=== PATIENT | female | born 1970 | race Caucasian/White ===

== ENCOUNTER 2018-01-24 04:44 | Emergency (ER) | payer OTHER ==
[~2018-01-24] VITALS: Ht 172.7 cm; Wt 65.9 kg
[2018-01-24 04:50] VITALS: TEMP 97.7
[2018-01-24] MEDS ORDERED: PREDNISONE20 MG PO (05:58)
[2018-01-24] MEDS ORDERED: VOLTAREN 75 DR75 MG PO (05:58)
[2018-01-24] MEDS ORDERED: NORCO 325 MG-51 TAB PO (05:58)
[2018-01-24] MEDS ORDERED: ZOLOFT 50MG50 MG PO (06:05)
[2018-01-24 06:09] VITALS: BP 107/62; PULSE 79
== END 2018-01-24 06:06 | disposition home or self-care (01) ==
LOC: COL.ER 04:44
DX: M25.552 Pain in left hip (principal); I10 Essential (primary) hypertension; W06.XXXA Fall from bed, initial encounter
CPT/HCPCS: J1885; J7512

== ENCOUNTER 2018-08-17 19:56 | Emergency (ER) | payer OTHER ==
[~2018-08-17] VITALS: Ht 172.7 cm; Wt 61.4 kg
[~2018-08-17 19:56] MED LIST: FERRO-TIME325 MG PO; HYDROCHLOROTHIAZIDE PO; NORCO 325 MG-51 TAB PO; PREDNISONE20 MG PO; PROTONIX 40MG T40 MG PO; VOLTAREN 75 DR75 MG PO; ZOLOFT 50MG50 MG PO; [UNRECOGNIZED DRUG - OTHER] PO
[2018-08-17 20:01] VITALS: TEMP 99
[2018-08-17] MEDS ORDERED: MICARDIS20 MG PO (20:17)
[2018-08-17] MEDS ORDERED: AUGMENTIN 400100 ML PO (21:12)
[2018-08-17] MEDS ORDERED: PHENERGAN 25 TA25 MG PO (21:15)
[2018-08-17 21:41] VITALS: BP 143/80; PULSE 88
[2018-08-21] MEDS ORDERED: AUGMENTIN 400100 ML PO (17:10)
== END 2018-08-17 21:41 | disposition home or self-care (01) ==
LOC: COL.ER 19:56
DX: J20.9 Acute bronchitis, unspecified (principal); F17.210 Nicotine dependence, cigarettes, uncomplicated

== ENCOUNTER 2019-01-30 22:41 | Emergency (ER) | payer OTHER ==
[~2019-01-30] VITALS: Ht 172.7 cm; Wt 61.4 kg
[~2019-01-30 22:41] MED LIST changes: +AUGMENTIN 400100 ML PO; +MICARDIS20 MG PO; +PHENERGAN 25 TA25 MG PO
[2019-01-30 22:47] VITALS: TEMP 98.2
[2019-01-31 00:07] LABS: BASO % 0.5 % (0.0-2.0); EOS # 0.1 (0.0-0.7); EOS % 1.5 % (0-4.0); GRAN # 5.2 (1.4-6.5); GRAN % 67.1 % (42.2-75.2); LYMPH # 1.8 (1.2-3.4); LYMPH % 22.4 % (20.0-51.0); MEAN CELL VOLUME 75 fl (80.0-100.0); MEAN CORPUSCULAR HGB CONC 29 g/dl (33.0-37.0); MEAN PLATELET VOLUME 11.4 fl (7.4-10.4); MONO # 0.6 (0.1-0.6); MONO % 8.2 % (1.7-9.3); PLATELET COUNT 200 K/mm3 (130-400); RED BLOOD COUNT 4.48 M/mm3 (4.10-5.30); REDCELL DISTRIBUTION WIDTH-CV 18.6 % (11.5-14.5)
[2019-01-31 00:08] LABS: HEMATOCRIT 33.7 % (37.0-47.0); HEMOGLOBIN 9.8 g/dl (12.5-16.0); MEAN CORPUSCULAR HEMOGLOBIN 22 pg (27.0-31.0)
[2019-01-31 00:19] LABS: ALANINE AMINOTRANSFERASE 12 U/L (9-52); ALBUMIN 3.7 gm/dL (3.5-5.0); ALKALINE PHOSPHATASE 117 U/L (50-136); ANION GAP 8 mmol/L (7-16); AST,SGOT 19 U/L (15-37); BILIRUBIN,TOTAL 0.2 mg/dL (0.0-1.0); BLOOD UREA NITROGEN 9 mg/dL (7-17); CALCIUM 8.2 mg/dL (8.4-10.2); CARBON DIOXIDE 30 mmol/L (22-30); CHLORIDE 102 mmol/L (98-107); CREATININE, serum 0.54 (0.52-1.25); GLUCOSE 78 mg/dL (74-106); POTASSIUM 3.6 mmol/L (3.4-5.0); SODIUM 139 mmol/L (137-145); TOTAL PROTEIN 6.8 gm/dL (6.4-8.2)
[2019-01-31 00:41] LABS: TROPONIN-I < 0.012 ng/mL (0.000-0.035)
[2019-01-31] MEDS ORDERED: DOXYCYCLINE 10100 MG PO (02:02)
[2019-01-31 02:17] VITALS: BP 137/80; PULSE 75
== END 2019-01-31 02:17 | disposition home or self-care (01) ==
LOC: COL.ER 22:41
PROVIDERS: Nurse Practitioner
DX: R06.00 Dyspnea, unspecified (principal); I10 Essential (primary) hypertension; F32.9 Major depressive disorder, single episode, unspecified; F17.210 Nicotine dependence, cigarettes, uncomplicated; Z90.49 Acquired absence of other specified parts of digestive tract; Z88.2 Allergy status to sulfonamides; Z98.84 Bariatric surgery status; Z98.51 Tubal ligation status
CPT/HCPCS: J7030; J8540

== ENCOUNTER 2020-02-04 07:11 | Day surgery (SDC) | payer OTHER ==
[~2020-02-04] VITALS: Ht 172.8 cm; Wt 67.4 kg
[2020-02-04] VITALS (12 sets, daily range): BP systolic 131–161; BP diastolic 69–85; PULSE 54–78; TEMP 97.8
[~2020-02-04 07:11] MED LIST changes: +DOXYCYCLINE 10100 MG PO
[2020-02-04] MEDS ORDERED: HCTZ12.5TAB PO (07:41)
[2020-02-04] MEDS ORDERED: NORVASC 10MG10 MG PO (07:42)
[2020-02-04] MEDS ORDERED: BONIVA150 MG PO (07:43)
[2020-02-04 08:20] LABS: MEAN CELL VOLUME 74 fl (80.0-100.0); MEAN CORPUSCULAR HGB CONC 29 g/dl (33.0-37.0); PLATELET COUNT 190 K/mm3 (130-400); RED BLOOD COUNT 4.15 M/mm3 (4.10-5.30); REDCELL DISTRIBUTION WIDTH-CV 17.7 % (11.5-14.5)
[2020-02-04 08:23] LABS: HEMATOCRIT 30.6 % (37.0-47.0); MEAN CORPUSCULAR HEMOGLOBIN 22 pg (27.0-31.0)
[2020-02-04 08:29] LABS: PROTHROMBIN TIME 11.6 SECONDS (9.7-12.8)
[2020-02-04 08:32] LABS: PARTIAL THROMBOPLASTIN TIME 35.3 SECONDS (26.0-37.0)
[2020-02-04 08:47] LABS: CALCIUM 8.1 mg/dL (8.4-10.2); CREATININE, serum 0.51 (0.52-1.25); POTASSIUM 3.5 mmol/L (3.4-5.0)
--- NOTE | 2020-02-04 12:09 | NUR ---
SEE ANESTHESIA RECORD FOR MEDS GIVEN DURING CHRIS. SEE MEREGE FOR ALL OTHER MEDICATIONS ADMINISTERED TIMES AND INTRA AND POST SEDATION ASSESSMENT
--- NOTE | 2020-02-04 13:20 | NUR ---
patient recieved from dock or pier laborer via bed, pt drowsy, does grimace and times when moving, in room, explained activity of bedrest and keeping right leg straight, has safeguard over site due to involuntary movement of legs. call light in reach. vss
--- NOTE | 2020-02-04 14:12 | NUR ---
con't same, pt rests with eyes closed
--- NOTE | 2020-02-04 14:30 | NUR ---
PT MOANING AND GRIMACING, CAME OUT OF ROOM, STATES SHE IS HAVING INCREASE LOWER BACK PAIN, PT HAS HISTORY OF LUMBAR PAIN ISSUES, SITE WITH SAFEGUARD IS UNCHANGED. DR ALVAREZ CALLED ON ABOUT PAIN, NEW ORDER RECIEVED, FENTANYL 0.25 IV GIVEN FOR PAIN AT 1245
--- NOTE | 2020-02-04 15:00 | NUR ---
PT RESTS WITH EYES CLOSED, LESS AGITATED, WILL FLINCH WHEN TOUCHED AND MOAN VSS, SITE WITH SAFEGUARD REMAINS THE SAME, IN ROOM
--- NOTE | 2020-02-04 16:00 | NUR ---
PT MORE AWAKE, OFFERED DRINK, TOOK SIP AND YELLED HER THROAT HURT, EXPLAINED TO ABOUT CHRIS AND THROAT MAY BE SORE, PT MOANING AND GRIMACING STATING BACK HURTS, ROLLING IN BED, ASSISTING PT TO KEEP RIGHT LEG STRAIGHT AND WHY, REPOSITIONED PT WITH HELP, PT YELLED WITH MOVE, BUT SETTLED DOWN, EYES CLOSED NOW, SAFEGUARD REMAINS ON WITH NO SIGNS OF BLEEDING, WILL CON'T TO MONITOR PT
--- NOTE | 2020-02-04 16:27 | NUR ---
REMAINS IN ROOM, PT IS SLEEPING AT THIS TIME, ASSESSMENT UNCHANGED, SAFEGUARD ON SITE WITH NO ACTIVE BLEEDING NOTED. REPORT TO KEREN BREEN TO ASSUME CARE, ALSO TOLD
--- NOTE | 2020-02-04 17:57 | NUR ---
Safety dressing air removed,dressing changed by this nurse.No bleeding observed at site.Discharge instructions given to pt.Pt verbalizes understanding.INT removed,catheter tip intact.Pt escorted out via wheelchair by this nurse.
== END 2020-02-04 17:58 | disposition home or self-care (01) ==
LOC: COL.CAR 07:11
PROVIDERS: Internal Medicine Cardiovascular Disease
DX: I08.2 Rheumatic disorders of both aortic and tricuspid valves (principal); I27.20 Pulmonary hypertension, unspecified; I10 Essential (primary) hypertension; M35.9 Systemic involvement of connective tissue, unspecified; I47.1 Supraventricular tachycardia; D50.9 Iron deficiency anemia, unspecified; F32.9 Major depressive disorder, single episode, unspecified; F41.9 Anxiety disorder, unspecified; Z88.2 Allergy status to sulfonamides; Z82.49 Family history of ischemic heart disease and other diseases of the circulatory system; Z90.49 Acquired absence of other specified parts of digestive tract; Z87.891 Personal history of nicotine dependence; Z20.828 Contact with and (suspected) exposure to other viral communicable diseases
CPT/HCPCS: J1644; J2250; J2704; J3010

== ENCOUNTER 2020-03-13 13:13 | Outpatient (CLI) | payer OTHER ==
[~2020-03-13] VITALS: Ht 172.7 cm; Wt 66.7 kg
[~2020-03-13 13:13] MED LIST changes: +BONIVA150 MG PO; +HCTZ12.5TAB PO; +NORVASC 10MG10 MG PO
[2020-03-13] MEDS ORDERED: CARTIA XT240 MG PO (13:25)
[2020-03-13] MEDS ORDERED: AMOXICILLIN875 MG PO (13:25)
[2020-03-13] MEDS ORDERED: REQUIP0.25 MG PO (13:26)
[2020-03-13] MEDS ORDERED: VITAMIN D31000 IU (13:29)
[2020-03-13 13:30] VITALS: BP 140/77; PULSE 78; TEMP 98.2
[2020-03-13] MEDS ORDERED: K-DUR20 MEQ (13:30)
[2020-03-13 16:30] VITALS: BP 138/77; PULSE 77
--- NOTE | 2020-03-13 16:30 | NUR ---
Pt is ready for departure. Loop insertion site covered with clean and dry dressing. Pt verbalized understanding of dc and f/u instructions. she is ambulatory at time of discharge, Meme BREEN walked pt to exit.
== END 2020-03-13 16:30 | disposition home or self-care (01) ==
LOC: COL.CAR 13:13
DX: I47.1 Supraventricular tachycardia (principal); I10 Essential (primary) hypertension; I27.20 Pulmonary hypertension, unspecified; F17.210 Nicotine dependence, cigarettes, uncomplicated; I08.0 Rheumatic disorders of both mitral and aortic valves; M35.9 Systemic involvement of connective tissue, unspecified; Z90.49 Acquired absence of other specified parts of digestive tract; Z88.2 Allergy status to sulfonamides; Z79.899 Other long term (current) drug therapy; Z83.3 Family history of diabetes mellitus
CPT/HCPCS: 27124; C1764

== ENCOUNTER 2020-04-29 06:45 | Emergency (ER) | payer OTHER ==
[~2020-04-29] VITALS: Ht 165.1 cm; Wt 54.5 kg
[~2020-04-29 06:45] MED LIST changes: +AMOXICILLIN875 MG PO; +CARTIA XT240 MG PO; +K-DUR20 MEQ; +REQUIP0.25 MG PO; +VITAMIN D31000 IU
[2020-04-29 06:46] VITALS: TEMP 98.4
[2020-04-29 07:27] LABS: BASO % 0.7 % (0.0-2.0); EOS # 0.1 (0.0-0.7); GRAN # 3.3 (1.4-6.5); GRAN % 55.4 % (42.2-75.2); HEMOGLOBIN 10.6 g/dl (12.5-16.0); LYMPH % 33.8 % (20.0-51.0); MEAN CELL VOLUME 78 fl (80.0-100.0); MEAN CORPUSCULAR HEMOGLOBIN 24 pg (27.0-31.0); MEAN CORPUSCULAR HGB CONC 30 g/dl (33.0-37.0); MONO # 0.5 (0.1-0.6); MONO % 8.9 % (1.7-9.3); PLATELET COUNT 155 K/mm3 (130-400); REDCELL DISTRIBUTION WIDTH-CV 22.5 % (11.5-14.5)
[2020-04-29 07:28] LABS: BILIRUBIN,TOTAL 0.4 mg/dL (0.0-1.0); CALCIUM 8.6 mg/dL (8.4-10.2); CREATININE, serum 0.59 (0.52-1.25); POTASSIUM 3.4 mmol/L (3.4-5.0); TOTAL PROTEIN 6.7 gm/dL (6.4-8.2)
[2020-04-29 07:29] LABS: HEMATOCRIT 35.3 % (37.0-47.0)
[2020-04-29] MEDS ORDERED: CARAFATE 1GM1 G PO (08:44)
[2020-04-29] MEDS ORDERED: PROTONIX 40MG T40 MG PO ×3 (08:44→11:15)
[2020-04-29 10:32] LABS: COLLECTION METHOD CLEAN CATCH
[2020-04-29 10:43] LABS: MUCOUS Present /lpf; PH 7 (5-8); URINE APPEARANCE Hazy; URINE BACTERIA Rare /hpf; URINE BILIRUBIN Negative (NEGATIVE); URINE BLOOD Negative (NEGATIVE); URINE COLOR Yellow; URINE GLUCOSE Negative (NEGATIVE); URINE KETONE Negative (NEGATIVE); URINE LEUKOCYTE ESTERASE Negative (NEGATIVE); URINE NITRATE Negative (NEGATIVE); URINE PROTEIN(semi-quant) Negative (NEGATIVE); URINE RBC 0-2 /hpf; URINE UROBILINOGEN >=4.0 mg/dL (NEGATIVE)
[2020-04-29] MEDS ORDERED: ZOFRAN ODT8 MG PO (11:16)
[2020-04-29 11:21] VITALS: BP 139/74; PULSE 61
== END 2020-04-29 11:28 | disposition home or self-care (01) ==
LOC: COL.ER 06:45
PROVIDERS: Emergency Medicine
DX: R11.10 Vomiting, unspecified (principal); Z98.84 Bariatric surgery status; Z88.2 Allergy status to sulfonamides
CPT/HCPCS: C9113; J2405; J2550; J7030; Q9967

== ENCOUNTER 2021-01-09 23:38 | Observation (INO) | payer OTHER ==
[~2021-01-09] VITALS: Ht 172.7 cm; Wt 65.8 kg
[~2021-01-09 23:38] MED LIST changes: +CARAFATE 1GM1 G PO; +ZOFRAN ODT8 MG PO
[2021-01-10] VITALS (10 sets, daily range): BP systolic 91–118; BP diastolic 43–68; PULSE 58–69; TEMP 97.4–98.2
[2021-01-10 00:17] LABS: INR 1.1 (0.8-3.0); PROTHROMBIN TIME 12.6 SECONDS (9.7-12.8)
[2021-01-10 00:20] LABS: ALANINE AMINOTRANSFERASE 14 U/L (4-34); ALBUMIN 3.5 gm/dL (3.5-5.0); ALKALINE PHOSPHATASE 100 U/L (50-136); ANION GAP 3 mmol/L (7-16); AST,SGOT 25 U/L (15-37); BILIRUBIN,TOTAL 0.4 mg/dL (0.0-1.0); BLOOD UREA NITROGEN 13 mg/dL (7-17); CALCIUM 8.2 mg/dL (8.4-10.2); CARBON DIOXIDE 26 mmol/L (22-30); CHLORIDE 109 mmol/L (98-107); CREATININE, serum 0.52 (0.52-1.25); GLUCOSE 107 mg/dL (74-106); POTASSIUM 3.4 mmol/L (3.4-5.0); SODIUM 138 mmol/L (137-145); TOTAL PROTEIN 6.5 gm/dL (6.4-8.2)
[2021-01-10 00:24] LABS: LIPASE 53 U/L (23-300)
[2021-01-10 00:34] LABS: BASO % 0.4 % (0.0-2.0); EOS # 0.1 (0.0-0.7); EOS % 1.3 % (0-4.0); GRAN # 4.3 (1.4-6.5); LYMPH % 27.9 % (20.0-51.0); MEAN CELL VOLUME 75 fl (80.0-100.0); MEAN CORPUSCULAR HGB CONC 30 g/dl (33.0-37.0); MEAN PLATELET VOLUME 11.5 fl (7.4-10.4); MONO # 0.7 (0.1-0.6); MONO % 9.3 % (1.7-9.3); PLATELET COUNT 174 K/mm3 (130-400); RED BLOOD COUNT 4.28 M/mm3 (4.10-5.30); REDCELL DISTRIBUTION WIDTH-CV 17.6 % (11.5-14.5); TROPONIN-I < 0.012 ng/mL (0.000-0.035)
[2021-01-10 00:36] LABS: HEMOGLOBIN 9.5 g/dl (12.5-16.0); MEAN CORPUSCULAR HEMOGLOBIN 22 pg (27.0-31.0)
[2021-01-10] MEDS ORDERED: MICARDIS20 MG PO (00:47)
[2021-01-10] MEDS ORDERED: PROAIR HFA0.09 MG/AC IH (00:47)
[2021-01-10] MEDS ORDERED: TIAZAC300 MG PO (00:48)
[2021-01-10] MEDS ORDERED: HCTZ12.5TAB PO (00:49)
[2021-01-10] MEDS ORDERED: NORVASC 10MG10 MG PO (01:05)
[2021-01-10] MEDS ORDERED: VITAMIN D31000 I1 PO (01:24)
--- NOTE | 2021-01-10 01:59 | NUR ---
Pt. arrived to the floor. Pt. is A&OX3, and very drowsy at this time. Shift assessment complete. INT to lt. ac patent. pt. denies pain or other needs.
[2021-01-10 02:17] LABS: GASTROCCULT POSITIVE; pH GASTRIC CONTENTS 4
[2021-01-10 06:57] LABS: BASO % 0.3 % (0.0-2.0); EOS # 0.1 (0.0-0.7); EOS % 1.5 % (0-4.0); GRAN # 2.9 (1.4-6.5); GRAN % 50.1 % (42.2-75.2); LYMPH # 2.3 (1.2-3.4); MEAN CELL VOLUME 77 fl (80.0-100.0); MEAN CORPUSCULAR HGB CONC 28 g/dl (33.0-37.0); MONO # 0.5 (0.1-0.6); MONO % 8.9 % (1.7-9.3); PLATELET COUNT 142 K/mm3 (130-400); RED BLOOD COUNT 4.22 M/mm3 (4.10-5.30); REDCELL DISTRIBUTION WIDTH-CV 17.7 % (11.5-14.5)
[2021-01-10 06:59] LABS: CALCIUM 7.8 mg/dL (8.4-10.2); CREATININE, serum 0.48 (0.52-1.25); POTASSIUM 3.8 mmol/L (3.4-5.0)
[2021-01-10 07:33] LABS: HEMATOCRIT 32.3 % (37.0-47.0); HEMOGLOBIN 9.1 g/dl (12.5-16.0); MEAN CORPUSCULAR HEMOGLOBIN 22 pg (27.0-31.0)
--- NOTE | 2021-01-10 08:00 | NUR ---
PATIENT IS VERY DROWSY AND JUST ROLLS OVER WHEN NURSING TRIED TO TALK TO HER. PATIENT JUST WANTS TO SLEEP. NPO FOR PLANNED EGD SOMETIME TODAY. AWAITING TO ROUND. PATIENT HAS A POSITIVE GASTRIC OCCULT. NO C/O N/V OR PAIN AT THIS TIME. HEAD TO TOE ASSESSMENT COMPLETE. VSS WITH TELE INPLACE. NO OTHER NEEDS. LIGHTS TURNED DOWN. CALL LIGHT IN REACH.
--- NOTE | 2021-01-10 09:20 | NUR ---
PATIENT GOING DOWN TO ENDO FOR EGD
--- NOTE | 2021-01-10 10:30 | NUR ---
PATIENT BACK IN ROOM POST PO EGD. PATIENT IS STILL VERY DROWSY AND WONT ANSWER NURSING WHEN ASKED IF SHE NEEDS TO VOID. URINE HAT INPLACE. UA PENDING. NOTED SOFT PRESSURE OF 96/45, ALL OTHER VSS. NO FAMILY AT BEDSIDE AT THIS TIME. CALL LIGHT IN REACH.
--- NOTE | 2021-01-10 11:15 | NUR ---
HOSPITALIST AT BEDSIDE, SEE ORDERS.
--- NOTE | 2021-01-10 14:00 | NUR ---
NURSING WENT INTO PATIENTS ROOM A WOKE HER UP TO EAT & VOID. PATIENT HAS JUST SLEPT ALL DAY. DENIES NEED TO VOID AT THIS TIME. NURSING SAT PATIENT UP TO EAT.
--- NOTE | 2021-01-10 14:30 | NUR ---
FINALLY ABLE TO COLLECT URINE AND SENT UA TO LAB
[2021-01-10 14:54] LABS: COLLECTION METHOD CLEAN CATCH
[2021-01-10 15:04] LABS: MUCOUS Present /lpf; PH 6 (5-8); URINE APPEARANCE Hazy; URINE BACTERIA Occasional /hpf; URINE BILIRUBIN Negative (NEGATIVE); URINE BLOOD Negative (NEGATIVE); URINE COLOR Yellow; URINE GLUCOSE Negative (NEGATIVE); URINE KETONE Negative (NEGATIVE); URINE LEUKOCYTE ESTERASE 2+ (NEGATIVE); URINE NITRATE Negative (NEGATIVE); URINE PROTEIN(semi-quant) 1+ (NEGATIVE); URINE UROBILINOGEN >=4.0 mg/dL (NEGATIVE)
[2021-01-10 15:11] LABS: TRICYCLIC ANTIDEPRESS URINE NEGATIVE
--- NOTE | 2021-01-10 17:00 | NUR ---
PATIENT NOW MORE AWAKE AND SEEMS RESTLESS. PATIENT'S FRIEND VISITING. PATIENT JUST KEEPS TALKING ABOUT WANTING TO GO HOME AND GOT UPSET WHEN NURSING MENTIONED THE PHYSICIAN'S WANTING TO KEEP HER OVER NIGHT. PATIENT REQUESTING AMA FORMS STATING, "I HAVE LEFT AMA BEFORE". OIL WELL LOGGING ENGINEER & HOSPITALIST NOTIFIED. DC'D IV AND COVERED SITE WITH RHINA & ALTAGRACIA. PATIENT & FRIEND PACKING HER PERSONAL BELONGINGS TO LEAVE.
--- NOTE | 2021-01-10 17:05 | NUR ---
NURSING REMINDED PATIENT SHE HAD MEDS IN THE PHARMACY. CAR INSTALLATIONS SUPERVISOR CALLED TO GET MEDS. PATIENT NOW LEAVING AMA WITH FRIEND.
[2021-01-10] MEDS ORDERED: PROTONIX 40MG T40 MG PO (17:07)
== END 2021-01-10 17:05 | disposition left against medical advice (07) ==
LOC: COL.ER 23:38 → SURG 01-10 00:51
PROVIDERS: Emergency Medicine; Internal Medicine Gastroenterology; Nurse Practitioner Family; ADMIT Internal Medicine
DX: K92.0 Hematemesis (principal); K31.5 Obstruction of duodenum; K63.89 Other specified diseases of intestine; K31.89 Other diseases of stomach and duodenum; K28.9 Gastrojejunal ulcer, unspecified as acute or chronic, without hemorrhage or perforation; I27.20 Pulmonary hypertension, unspecified; I26.99 Other pulmonary embolism without acute cor pulmonale; I35.1 Nonrheumatic aortic (valve) insufficiency; I47.1 Supraventricular tachycardia; I10 Essential (primary) hypertension; D50.9 Iron deficiency anemia, unspecified; E87.6 Hypokalemia; M81.0 Age-related osteoporosis without current pathological fracture; T18.2XXA Foreign body in stomach, initial encounter; F19.10 Other psychoactive substance abuse, uncomplicated; F17.210 Nicotine dependence, cigarettes, uncomplicated; Z98.84 Bariatric surgery status; Z79.899 Other long term (current) drug therapy; F32.9 Major depressive disorder, single episode, unspecified; F41.9 Anxiety disorder, unspecified
CPT/HCPCS: C9113; G0378; J2405; J2704; J2765; J3480; J7030; J7120

== ENCOUNTER 2021-02-24 05:42 | Emergency (ER) | payer OTHER ==
[~2021-02-24] VITALS: Ht 172.7 cm; Wt 63.6 kg
[~2021-02-24 05:42] MED LIST changes: +PROAIR HFA0.09 MG/AC IH; +TIAZAC300 MG PO; +VITAMIN D31000 I1 PO
[2021-02-24 05:43] VITALS: TEMP 98.2
[2021-02-24 07:03] LABS: BASO # 0.1 (0.0-0.2); BASO % 0.5 % (0.0-2.0); EOS # 0.1 (0.0-0.7); EOS % 0.6 % (0-4.0); GRAN # 7.7 (1.4-6.5); GRAN % 73.2 % (42.2-75.2); HEMOGLOBIN 10.7 g/dl (12.5-16.0); LYMPH # 1.8 (1.2-3.4); LYMPH % 17.4 % (20.0-51.0); MEAN CELL VOLUME 74 fl (80.0-100.0); MEAN CORPUSCULAR HEMOGLOBIN 22 pg (27.0-31.0); MEAN CORPUSCULAR HGB CONC 30 g/dl (33.0-37.0); MONO # 0.8 (0.1-0.6); PLATELET COUNT 226 K/mm3 (130-400); RED BLOOD COUNT 4.92 M/mm3 (4.10-5.30); REDCELL DISTRIBUTION WIDTH-CV 16.6 % (11.5-14.5)
[2021-02-24 07:04] LABS: HEMATOCRIT 36.3 % (37.0-47.0)
[2021-02-24 07:05] LABS: BILIRUBIN,TOTAL 0.2 mg/dL (0.0-1.0); CREATININE, serum 0.61 (0.52-1.25); POTASSIUM 3.7 mmol/L (3.4-5.0); TOTAL PROTEIN 7.6 gm/dL (6.4-8.2)
[2021-02-24 10:06] VITALS: BP 122/81; PULSE 76
== END 2021-02-24 10:07 | disposition home or self-care (01) ==
LOC: COL.ER 05:42
PROVIDERS: Emergency Medicine
DX: S01.01XA Laceration without foreign body of scalp, initial encounter (principal); M54.2 Cervicalgia; R07.81 Pleurodynia; Y04.0XXA Assault by unarmed brawl or fight, initial encounter
CPT/HCPCS: J0690; J2270; J2405; J7030

== ENCOUNTER 2022-11-02 01:12 | Inpatient (IN) | payer OTHER ==
[~2022-11-02] VITALS: Ht 172.7 cm; Wt 61.8 kg
[~2022-11-02 01:12] MED LIST changes: +PREDNISONE10 MG PO; +ZITHROMAX Z PA250 MG PO
[2022-11-02 01:59] LABS: BASO # 0.1 K/mm3 (0.0-0.2); BASO % 0.5 % (0.0-2.0); EOS # 0.1 K/mm3 (0.0-0.7); EOS % 0.6 % (0.0-4.0); GRAN # 8.3 K/mm3 (1.4-6.5); GRAN % 68.1 % (42.2-75.2); LYMPH # 2.8 K/mm3 (1.2-3.4); LYMPH % 23.1 % (20.0-51.0); MEAN CELL VOLUME 69 fl (80.0-100.0); MEAN CORPUSCULAR HGB CONC 29 g/dl (33.0-37.0); MEAN PLATELET VOLUME 11.1 fl (7.4-10.4); MONO # 0.9 K/mm3 (0.1-0.6); MONO % 7.4 % (1.7-9.3); PLATELET COUNT 290 K/mm3 (130-400); RED BLOOD COUNT 4.89 M/mm3 (4.10-5.30); REDCELL DISTRIBUTION WIDTH-CV 18.9 % (11.5-14.5)
[2022-11-02 02:01] LABS: INR 1.2 (0.8-3.0); PROTHROMBIN TIME 13.2 SECONDS (9.7-12.8)
[2022-11-02 02:02] LABS: HEMATOCRIT 33.5 % (37.0-47.0); HEMOGLOBIN 9.7 g/dl (12.5-16.0); MEAN CORPUSCULAR HEMOGLOBIN 20 pg (27-31)
[2022-11-02 02:04] LABS: PARTIAL THROMBOPLASTIN TIME 30.1 SECONDS (26.0-37.0)
[2022-11-02 02:13] LABS: ALBUMIN 3.7 gm/dL (3.5-5.0); BILIRUBIN,TOTAL 0.4 mg/dL (0.2-1.2); CALCIUM 9.1 mg/dL (8.4-10.2); POTASSIUM 4.1 mmol/L (3.5-4.5); TOTAL PROTEIN 7.2 gm/dL (6.2-8.1)
[2022-11-02 02:14] LABS: COLLECTION METHOD CLEAN CATCH
[2022-11-02 02:28] LABS: MUCOUS Present (NOT PRESENT); SQUAMOUS EPITHELIAL 0-2 /hpf (0-10); URINE APPEARANCE Clear (CLEAR/HAZY); URINE BACTERIA None Seen /hpf (NONE SEEN); URINE COLOR Yellow (YELLOW); URINE PROTEIN(semi-quant) 1+ (NEGATIVE); URINE RBC 0-2 /hpf (0-2)
[2022-11-02 02:29] LABS: URINE BLOOD Negative (NEGATIVE); URINE GLUCOSE Negative (NEGATIVE); URINE KETONE TRACE (NEGATIVE); URINE NITRATE Negative (NEGATIVE)
[2022-11-02 02:33] LABS: TRICYCLIC ANTIDEPRESS URINE NEGATIVE
[2022-11-02 02:36] LABS: C-REACTIVE PROTEIN 1.16 mg/dL (0.00-0.50); CREATININE, serum 0.8 mg/dL (0.57-1.11)
[2022-11-02 09:31] LABS: HEMATOCRIT 27.6 % (37.0-47.0); HEMOGLOBIN 8.2 g/dl (12.5-16.0)
[2022-11-02 12:56] VITALS: BP 161/78; PULSE 63; TEMP 97.6
--- NOTE | 2022-11-02 14:21 | NUR ---
Pt admitted to room 319 at approximately 1250 with diagnosis of hematemesis x1 month. Pt somonlent and doesn't make eye contact when intake was being completed- even falling asleep at times. Pt unable to remember the name of a blood pressure medication she takes. States she fills her medications all her medications through the [facility] on [address]. This nurse called the [facility] on [address] to confirm medications but pharmacy staff reports that the pt has not filled medications their since 11/2021. Pt mentioned she doesn't take her Boniva because it is [place] get [place] at [facility] to get medications and she tries to avoid it as much as possible. Consult called to Dr. Yee. Pt remains NPO for possible procedure.
[2022-11-02 15:09] VITALS: BP 148/79; PULSE 65; TEMP 97.4
[2022-11-02] MEDS ORDERED: PROTONIX 40MG T40 MG PO (16:22)
[2022-11-02 17:40] LABS: HEMOGLOBIN 8.9 g/dl (12.5-16.0)
[2022-11-02 17:41] LABS: HEMATOCRIT 30.1 % (37.0-47.0)
--- NOTE | 2022-11-02 18:29 | NUR ---
CT scan of head completed. GI consult completed. Pt ordered supper tray. Per Dr. Yee, pt won't have a scope for a least a couple more days so no longer NPO. Dr. Tobar notified of completed consult and CT scan. Pt continues to not be interactive much with staff and is grumpy. Does agree to wear SCD's. Reports LBP but declines offer for this nurse to call MD for pain med order. States "I'm not a pill head" and "Tylenol doesn't do anything for me."
--- NOTE | 2022-11-02 19:06 | NUR ---
Pt voiced frustrations about being in the hospital, had questions about labs and scans. This nurse explained, again, lab and scan results as well as GI consult. Pt continues to ask the same questions after this nurse explains again. Pt behavior escalated as the converstation progressed and stated "I should just leave." Explained to the patinet that she may leave AMA if she wishes. Pam Olivia APRN notified of situation.
[2022-11-02 19:53] VITALS: BP 147/79; PULSE 70; TEMP 98.4
--- NOTE | 2022-11-02 20:28 | NUR ---
ENTERED PATIENT'S ROOM TO DO HER ASSESSMENT, AND LET HER KNOW WHAT THE SAID WHEN WE CALLED TO TELL THEM SHE HAD QUESTIONS ABOUT WHY SHE WAS STILL HERE, AND WANTING TO LEAVE, PT. SLEEPING DEEPLY AT THIS TIME, UNABLE TO WAKE UP WITH ME CALLING HER NAME, PT. LUNG SOUNDS CLEAR, BREATHING UNLABORED, PT. WAS C/O BACK PAIN EARLIER, BUT IS REFUSING TO TAKE TYLENOL, DOES NOT APPEAR TO BE IN ANY PAIN WHILE SHE IS SLEEPING, WILL SEE IF I CAN WAKE HER UP AT A LATER TIME, WILL CONTINUE TO MONITOR.
[2022-11-03 00:08] VITALS: BP 152/91; PULSE 73; TEMP 98.4
[2022-11-03 05:16] VITALS: BP 146/73; PULSE 67; TEMP 97.8
--- NOTE | 2022-11-03 06:00 | NUR ---
[id number] THE [employer] NOTIFIED ME THAT THE PATIENT WAS C/O NAUSEA, I GOT A DOSE OF ZOFRAN TO GIVE HER, BUT PATIENT REFUSED MED, STATING THAT SHE NEEDED IT BACK WHEN SHE FIRST C/O NAUSEA AND THE TECH GAVE HER A BASIN, WHICH PATEL STATED SHE GAVE TO HER LESS THAN 5 MIN PRIOR. PT. STATED THAT SHE HAD BEEN C/O NAUSEA A LONG TIME AGO, BUT THAT WE HAD BEEN IGNORING HER. I CHECKED ON THE PATIENT Q2H THROUGHOUT THE NIGHT, AND EVERY TIME I LOOKED IN HER ROOM SHE WAS SLEEPING, SHE WOULD NOT WAKE UP OR ACKNOWLEDGE ME WHEN I DID HER ASSESSMENT, AND SHE DID NOT PRESS HER CALL LIGHT TO ASK FOR ANYTHING THROUGHOUT THE NIGHT EITHER. PT. ALSO ASKED ABOUT HER BP MEDICATION, STATING THAT IT HAD BEEN TWO DAYS SINCE SHE'S HAD IT, I INFORMED HER THAT SHE WAS ONLY ADMITTED YESTERDAY, THAT WE HAVE HER HOME MEDICATION DOCUMENTED, AND THAT WE ARE WAITING FOR THE DRMelissa TO REVIEW HER MEDS AND ORDER WHAT THEY WANT HER TO TAKE WHILE SHE'S HERE. PT. STATED THAT SHE WOULD JUST HAVE SOMEONE BRING HER MED FROM HOME SO THAT SHE COULD TAKE IT. I EXPLAINED THAT WE AREN'T ALLOWED TO HAVE PEOPLE TAKE THEIR MEDS FROM HOME WHILE THEY ARE IN THE HOSPITAL, UNLESS IT'S ONE THAT WE DON'T HAVE AVAILABLE, WE NEED TO MAKE SURE SHE IS GETTING THE RIGHT MED/DOSE THAT THE DR. ORDERED WHILE SHE'S HERE. PT. THEN STATED SHE WILL BE GONE BEFORE THE DRMelissa GETS HER MED ORDERED. PT. C/O HEADACHE, BUT IS REFUSING TO TRY TYLENOL.
[2022-11-03 07:14] VITALS: BP 150/72; PULSE 76; TEMP 98.2
[2022-11-03 08:02] LABS: CALCIUM 8.3 mg/dL (8.4-10.2); CREATININE, serum 0.66 mg/dL (0.57-1.11); POTASSIUM 3.4 mmol/L (3.5-4.5)
--- NOTE | 2022-11-03 08:13 | NUR ---
Assessment complete. Pt cooperative and answers questions appropriately but does not open eyes or make eye contact during assessment. Denies back pain. Denies nausea/vomitting. SCD not on at this time.
[2022-11-03 08:58] LABS: BASO % 0.5 % (0.0-2.0); EOS # 0.1 K/mm3 (0.0-0.7); EOS % 1.9 % (0.0-4.0); GRAN # 4.2 K/mm3 (1.4-6.5); GRAN % 64.4 % (42.2-75.2); LYMPH # 1.6 K/mm3 (1.2-3.4); LYMPH % 25.1 % (20.0-51.0); MEAN CELL VOLUME 67 fl (80.0-100.0); MEAN CORPUSCULAR HGB CONC 30 g/dl (33.0-37.0); MEAN PLATELET VOLUME 10.1 fl (7.4-10.4); MONO # 0.5 K/mm3 (0.1-0.6); MONO % 7.9 % (1.7-9.3); PLATELET COUNT 203 K/mm3 (130-400); RED BLOOD COUNT 4.25 M/mm3 (4.10-5.30); REDCELL DISTRIBUTION WIDTH-CV 18.8 % (11.5-14.5)
[2022-11-03 09:02] LABS: HEMATOCRIT 28.5 % (37.0-47.0); HEMOGLOBIN 8.5 g/dl (12.5-16.0); MEAN CORPUSCULAR HEMOGLOBIN 20 pg (27-31)
--- NOTE | 2022-11-03 11:08 | NUR ---
SW met with patient to complete intake and discuss discharge plan. Patient defensive and resistant with her answers to this sw asking questions. Patient resentful that the medical staff is doing testing on her and no communicating why we are doing testing or providing answers to testing. Patient verbalizes multiple times that she wants to leave. SW attempted to educate patient that we are here to advocate for her. 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 I've been through this before with you people". Patient is fully indpendent with her ADL's and IADL's with no home oxygen needs. She seeks PCP care through [facility]go at [facility] and obtains medications through [facility]. Patient does not have a DPOA-HC established but is legally to [place] ([phone]). Patient adamant about leaving AMA. Hospitalist notified. Discharge plan: AMA to home
[2022-11-03 11:14] VITALS: BP 129/72; PULSE 73; TEMP 98
--- NOTE | 2022-11-03 11:23 | NUR ---
Initial visit: Machine Coremaker stopped by room on rounds. Pt was resting in bed and content. After introducing myself pt stated she did not need anything from me. Machine Coremaker will follow up as needed.
--- NOTE | 2022-11-03 11:26 | NUR ---
PCT reports to this nurse that patient is wanting her INT d/c'd and wants to go home. Dr. Tobar notified and states patient may leave AMA if she wishes to leave. EGD was scheduled for tomorrow. Pt informed that she would have to leave AMA if she wishes to leave today. Also informed that EGD was scheduled tomorrow. Reviewed benefits of staying and risks of leaving AMA. Pt becomes agitated stating that no one is doing anything or telling her anything. Explained to pt that this nurse has personally had several conversations with her regarding her POC, lab results, etc. Pt still wishes to leave AMA- form signed. INT d/c'd with cath tip intact. Pt calls friend to come pick her up. Request that she let staff know when her ride arrives so she can be escorted out but she states "I can walk myself."
--- NOTE | 2022-11-03 11:50 | NUR ---
Upon entering pt room this nurse found it to be empty of pt and all pt belongings.
[2022-11-03] MEDS ORDERED: CARAFATE 1GM1 G PO (14:53)
[2022-11-03] MEDS ORDERED: FERGON240 MG PO (14:53)
== END 2022-11-03 11:50 | disposition left against medical advice (07) | DRG 377 ==
LOC: COL.ER 01:12 → MEDICAL 05:14
PROVIDERS: Emergency Medicine; Internal Medicine Gastroenterology; Physician Assistant; Student in an Organized Health Care Education/Training Program; ADMIT Internal Medicine
DX: K28.4 Chronic or unspecified gastrojejunal ulcer with hemorrhage (principal); G92.8 Other toxic encephalopathy; I47.1 Supraventricular tachycardia; K86.1 Other chronic pancreatitis; K56.1 Intussusception; I27.20 Pulmonary hypertension, unspecified; I35.1 Nonrheumatic aortic (valve) insufficiency; I10 Essential (primary) hypertension; F17.210 Nicotine dependence, cigarettes, uncomplicated; J47.9 Bronchiectasis, uncomplicated; D50.9 Iron deficiency anemia, unspecified; F15.10 Other stimulant abuse, uncomplicated; Z53.21 Procedure and treatment not carried out due to patient leaving prior to being seen by health care provider; Z95.818 Presence of other cardiac implants and grafts; Z98.84 Bariatric surgery status; Z88.2 Allergy status to sulfonamides; Z98.51 Tubal ligation status; Z90.49 Acquired absence of other specified parts of digestive tract
CPT/HCPCS: C9113; J2270; J7030; J7120; Q9967